=== PATIENT | female | born 1980 | race Caucasian/White ===

== ENCOUNTER 2023-11-03 17:33 | Emergency (ER) | payer BC ==
[2023-11-03] MEDS: Cephalexin 500 MG Cap PO ONE (18:07)
[2023-11-03] MEDS: Doxycycline Monohydrate 100 MG Cap PO ONE (18:07)
== END 2023-11-03 18:15 | disposition home or self-care (01) ==
LOC: VM.ED 17:33
DX: S00.461A Insect bite (nonvenomous) of right ear, initial encounter (principal); L08.9 Local infection of the skin and subcutaneous tissue, unspecified; F17.210 Nicotine dependence, cigarettes, uncomplicated; Z79.899 Other long term (current) drug therapy; Z88.8 Allergy status to other drugs, medicaments and biological substances; W57.XXXA Bitten or stung by nonvenomous insect and other nonvenomous arthropods, initial encounter
CPT/HCPCS: 99282; A9270-GY